=== PATIENT | male | born 1985 | race Caucasian/White ===

== ENCOUNTER 2021-11-30 17:50 | Emergency (ER) | payer MEDICAID ==
[~2021-11-30] VITALS: Ht 172.7 cm; Wt 83.6 kg
[2021-11-30 18:44] VITALS: BP 160/100
== END 2021-11-30 18:51 | disposition home or self-care (01) ==
LOC: EMS 17:50
DX: F10.20 Alcohol dependence, uncomplicated (principal)
CPT/HCPCS: 99281; 99283